=== PATIENT | female | born 2000 | race Caucasian/White ===

== ENCOUNTER 2023-12-31 22:16 | Emergency (ER) | payer SELFPAY ==
[2023-12-31] MEDS ORDERED: Dexamethasone 10 MG/ML VIAL ONE (23:26)
== END 2023-12-31 23:36 | disposition home or self-care (01) ==
LOC: ERS 22:16
DX: U07.1 COVID-19 (principal); R21 Rash and other nonspecific skin eruption
CPT/HCPCS: 87428; 99283; J1100